=== PATIENT | female | born 1950 | race Caucasian/White ===

== ENCOUNTER → 2023-03-14 | Day surgery (SDC) | payer MEDICARE | END | disposition home or self-care (01) | LOC: MAMMO 06:59 | PROVIDERS: ATTEND Family Medicine | PROC: 0H9U3ZX Drainage of Left Breast, Percutaneous Approach, Diagnostic (ICD-10-PCS; principal; 2023-03-14) | DX: D05.12 Intraductal carcinoma in situ of left breast (principal); Z88.5 Allergy status to narcotic agent | CPT/HCPCS: 19081; 76098; A4648; 88305; 88341; 88342; 88361 ==